=== PATIENT | female | born 1975 | race Caucasian/White ===

== ENCOUNTER 2018-04-01 10:07 | Emergency (ER) | payer BC, OTHER ==
[~2018-04-01] VITALS: Ht 177.8 cm; Wt 62.6 kg
--- NOTE | ~2018-04-01 | EKG ---
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[employer]: [facility] : 1975 Requested By: Daniel Ricketts Order Number: [id number] MD: Booker Kong Measurements Intervals [place] Rate: 77 P: 69 SC: 185 QRS: 67 QRSD: 84 T: 71 QT: 397 QTc: 450 Interpretive Statements Sinus rhythm RSR' in V1 or V2, probably normal variant No previous ECG available for comparison Electronically Signed On 04-01-2018 12:53:36 CDT by Booker Kong [email or web address] <ELECTRONICALLY SIGNED> By: Booker Kong MD, [facility] 04/01/18 1253 1014 1014 Booker Kong MD, FACC /EPI
[2018-04-01 10:49] LABS: ABSOLUTE NEUTROPHILS 6.7 thou/uL (1.4-8.2); BASOPHILS 0.5 % (0.0-2.0); EOSINOPHILS 0.2 % (0.0-3.0); HEMATOCRIT 38.2 % (37.0-47.0); HEMOGLOBIN 13.6 gm/dL (12.0-15.0); LYMPHOCYTES 12.2 % (24.0-44.0); MCH 34.5 pg (26.0-34.0); MCHC 35.5 g/dL (28.0-37.0); MCV 97.2 fL (80.0-100.0); MONOCYTES 5.1 % (1.0-8.0); PLATELET COUNT 285 thou/uL (150-400); RBC 3.93 mil/uL (4.20-5.00); RDW 12.3 % (10.5-14.5); WBC 8.1 thou/uL (4.0-11.0)
[2018-04-01] MEDS ORDERED: LOPRESSOR50 PO (10:49)
[2018-04-01] MEDS ORDERED: LYRICA 50 MG50 MG PO (10:49)
[2018-04-01] MEDS ORDERED: CYMBALTA30 MG PO (10:50)
[2018-04-01] MEDS ORDERED: AMITRIPTYLINE H10 M3 PO (10:50)
[2018-04-01 10:59] LABS: ANION GAP 9 mmol/L (7-16); BUN 12 mg/dL (7-18); CALCIUM 9.2 mg/dL (8.5-10.1); CHLORIDE 101 mmol/L (98-107); CO2 26 mmol/L (21-32); CREATININE 0.7 mg/dL (0.6-1.0); GLUCOSE 116 mg/dL (74-106); POTASSIUM 3.7 mmol/L (3.5-5.1); SODIUM 136 mmol/L (136-145)
[2018-04-01 11:07] LABS: ALBUMIN 4.2 g/dL (3.4-5.0); SGOT 33 U/L (15-37); SGPT 45 U/L (30-65); TOTAL BILIRUBIN 0.4 mg/dL (<0.1-1.0); TOTAL PROTEIN 7.7 g/dL (6.4-8.2); TROPONIN-I < 0.04 ng/mL (<0.06)
[2018-04-01 13:00] VITALS: BP 118/80
== END 2018-04-01 13:02 | disposition home or self-care (01) ==
LOC: ER 10:07
PROVIDERS: Emergency Medicine
DX: R07.9 Chest pain, unspecified (principal); R42 Dizziness and giddiness; Z87.891 Personal history of nicotine dependence; Z88.0 Allergy status to penicillin; Z88.1 Allergy status to other antibiotic agents